=== PATIENT | male | born 1995 | race Two or more races ===

== ENCOUNTER 2017-10-11 19:40 | Emergency (ER) | payer OTHER ==
[~2017-10-11] VITALS: Ht 170.2 cm; Wt 61.2 kg
[2017-10-11 21:34] LABS: Basophils # (auto) 0.1 uL; Basophils % (auto) 0.7 % (0.0-2.0); Eosinophils # (auto) 0.1 uL; Eosinophils % (auto) 1.3 % (0.0-7.0); Hemoglobin 14.1 g/dL (13.5-17.5); Lymphocytes # (auto) 1.2 uL; Lymphocytes % (auto) 15.6 % (10.0-50.0); Mean Corpuscular Hemoglobin 31.5 pg (28.0-32.0); Mean Corpuscular Hgb Conc. 34.4 g/dL (32.0-36.0); Mean Corpuscular Volume 91.5 fL (80.0-100.0); Monocytes # (auto) 0.7 uL; Monocytes % (auto) 8.9 % (0.0-12.0); Neutrophils # (auto) 5.4 uL; Neutrophils % (auto) 73.5 % (37.0-80.0); Nucleated Red Blood Cells % 0.1 %; Platelet Count (auto) 217 10^3/uL (140-450); Red Blood Cells 4.48 10^6/uL (4.5-5.90); Red Cell Distribution Width 12.8 % (11.8-14.3); White Blood Cell 7.4 10^3/uL (4.4-10.8)
[2017-10-11 21:49] LABS: Albumin 3.7 g/dL (3.4-5.0); Calcium 8.2 mg/dL (8.5-10.1); Potassium 3.4 mmol/L (3.5-5.1)
[2017-10-11 21:51] LABS: BUN/Creatinine Ratio 14.4
[2017-10-11 21:53] LABS: Bilirubin, Total 0.4 mg/dL (0.2-1.0); Total Protein 6.7 g/dL (6.4-8.2)
[2017-10-11 22:21] LABS: Urine Bacteria NONE SEEN /hpf (None Seen); Urine Blood Negative /uL (Negative); Urine WBC 10 /hpf (0 - 3)
[2017-10-12 00:05] VITALS: BP 112/49
[2017-10-12] MEDS ORDERED: POTASSIUM CHL 20 Meq TABLET PO ONE (00:15)
== END 2017-10-12 00:27 | disposition home or self-care (01) ==
LOC: EDBD 19:40 → ER 19:40
DX: E10.649 Type 1 diabetes mellitus with hypoglycemia without coma (principal); E87.6 Hypokalemia; T38.3X5A Adverse effect of insulin and oral hypoglycemic [antidiabetic] drugs, initial encounter; Y92.89 Other specified places as the place of occurrence of the external cause
CPT/HCPCS: 36415; 80053; 81001; 82962; 85025

== ENCOUNTER 2024-02-19 19:09 | Inpatient (IN) | payer MEDICAID, OTHER ==
[~2024-02-19] VITALS: Ht 175.3 cm; Wt 64.0 kg
[2024-02-19] MEDS: SODIUM CHLORIDE 0.9% 2,000 ML IV ONE (19:31)
[2024-02-19 19:37] LABS: Base Excess -19.1 mmol/L (-2.0-2.0)
[2024-02-19 19:39] LABS: Basophils # (auto) 0 10 ^3/uL (0-0.2); Basophils % (auto) 0.3 % (0.0-2.0); Eosinophils # (auto) 0 10 ^3/uL (0-0.8); Hematocrit 50.2 % (41.0-53.0); Hemoglobin 17.4 g/dL (13.5-17.5); Lymphocytes # (auto) 1.3 10 ^3/uL (0.4-5.4); Lymphocytes % (auto) 8.1 % (10.0-50.0); Mean Corpuscular Hemoglobin 31.9 pg (28.0-32.0); Mean Corpuscular Hgb Conc. 34.7 g/dL (32.0-36.0); Monocytes # (auto) 0.5 10 ^3/uL (0-1.3); Monocytes % (auto) 3.1 % (0.0-12.0); Neutrophils # (auto) 14.8 10 ^3/uL (1.6-8.6); Neutrophils % (auto) 88.5 % (37.0-80.0); Nucleated Red Blood Cells % 0.1 %; Red Blood Cells 5.45 10^6/uL (4.5-5.90); Red Cell Distribution Width 12.4 % (11.8-14.3); White Blood Cell 16.7 10^3/uL (4.4-10.8)
[2024-02-19] MEDS: InsuLIN REG 1unit/0.01ml Soln (100units/ml) IV ONE (19:42)
[2024-02-19 19:58] LABS: Alanine Aminotransferase 28 U/L (7-40); Albumin 5.3 g/dL (3.2-4.8); Alkaline Phosphatase 143 U/L (46-116); Anion Gap 27.00001 (5-15); Aspartate Aminotransferase 36 U/L (13-40); BUN/Creatinine Ratio 15.4 (10.0-20.0); Blood Urea Nitrogen 21 mg/dL (9-23); Calcium 10.4 mg/dL (8.7-10.4); Chloride 95 mmol/L (98-107); Potassium 4.9 mmol/L (3.5-5.1); Sodium 132 mmol/L (136-145); Total Protein 8.5 g/dL (5.7-8.2)
[2024-02-19 20:03] LABS: Carbon Dioxide < 10 mmol/L (20-30); Glucose 425 mg/dL (74-106)
[2024-02-19 20:15] VITALS: PULSE 86; RESP 18; O2SAT 97
[2024-02-19 20:15] LABS: Urine Bacteria None Seen /hpf (None Seen)
[2024-02-19 20:20] LABS: Urine Blood Negative /uL (Negative); Urine Clarity Clear (Clear); Urine Color Light-Yellow (Yellow); Urine Protein, UAD TRACE (Negative); Urine Specific Gravity 1.026 (1.001-1.035); Urine Urobilinogen Normal (Negative); Urine WBC 1 /hpf (0 - 3); Urine pH 5.5 (5.0-9.0)
[2024-02-19] MEDS ORDERED: DEXTROSE (50%) 50ML SYRG IV PRN ×2 (20:45→21:15)
[2024-02-19] MEDS: INSULIN LANTUS (GLARGINE) 1 /0.01ml (100units/ml) SC ONE ×2 (20:47→21:15)
[2024-02-19] MEDS: INSULIN DRIP 100 UNIT/100ML 100 ML IV SCH (20:53)
[2024-02-19] MEDS: ACCU-CHEK COMFORT CURVE STRIP VI SCH (20:55)
[2024-02-19 21:01] LABS: Magnesium 2.3 mg/dL (1.6-2.6)
[2024-02-19 21:03] LABS: Phosphorus 5.8 mg/dL (2.4-5.1)
[2024-02-19] MEDS ORDERED: NITROGLYCERIN 0.4 MG SL TAB SL PRN (21:15)
[2024-02-19] MEDS ORDERED: ONDANSETRON HCL 4 MG/2 ML VIAL IV PRN (21:15)
[2024-02-19] MEDS: SODIUM CHLORIDE 0.9% 1,000 ML IV SCH (21:15)
[2024-02-19] MEDS ORDERED: MORPHINE SULFATE INJ 2 MG/ml SYRG IV PRN (21:15)
[2024-02-19 21:51] LABS: Chloride 103 mmol/L (98-107); Potassium 4.7 mmol/L (3.5-5.1); Sodium 137 mmol/L (136-145)
[2024-02-19 21:52] LABS: Anion Gap 21 (5-15); Calcium 9.4 mg/dL (8.7-10.4); Carbon Dioxide 13 mmol/L (20-30)
[2024-02-19 21:57] LABS: BUN/Creatinine Ratio 15.8 (10.0-20.0); Blood Urea Nitrogen 21 mg/dL (9-23)
[2024-02-19 21:59] LABS: Creatine Kinase IFCC 69 U/L (46-171)
[2024-02-19 22:00] LABS: Glucose 274 mg/dL (74-106); Phosphorus 4.6 mg/dL (2.4-5.1)
[2024-02-19] MEDS: D5W/SOD CHL 0.45% 1,000 ML IV SCH (22:45)
[2024-02-20] MEDS: SODIUM CHLORIDE 0.9% 1,000 ML IV SCH ×3 (01:15→11:21)
[2024-02-20 03:49] LABS: Anion Gap 12 (5-15); Carbon Dioxide 18 mmol/L (20-30); Chloride 107 mmol/L (98-107); Potassium 4.1 mmol/L (3.5-5.1); Sodium 137 mmol/L (136-145)
[2024-02-20 03:50] LABS: Calcium 8.7 mg/dL (8.7-10.4)
[2024-02-20 03:55] LABS: BUN/Creatinine Ratio 14.7 (10.0-20.0); Blood Urea Nitrogen 15 mg/dL (9-23)
[2024-02-20 03:57] LABS: Glucose 160 mg/dL (74-106)
[2024-02-20 07:45] VITALS: PULSE 89; RESP 12; O2SAT 96
[2024-02-20] MEDS: ACCU-CHEK COMFORT CURVE STRIP VI SCH (08:17)
[2024-02-20] MEDS: InsuLIN REG 1unit/0.01ml Soln (100units/ml) SC SCH (08:18)
[2024-02-20 09:23] LABS: Chloride 106 mmol/L (98-107); Potassium 4.1 mmol/L (3.5-5.1); Sodium 136 mmol/L (136-145)
[2024-02-20 09:24] LABS: Anion Gap 13 (5-15); Calcium 8.7 mg/dL (8.7-10.4); Carbon Dioxide 17 mmol/L (20-30)
[2024-02-20 09:29] LABS: BUN/Creatinine Ratio 12.7 (10.0-20.0); Blood Urea Nitrogen 13 mg/dL (9-23); Glucose 221 mg/dL (74-106)
[2024-02-20] MEDS: INSULIN LANTUS (GLARGINE) 1 /0.01ml (100units/ml) SC SCH (09:56)
[2024-02-20] MEDS ORDERED: INSULIN LANTUS (GLARGINE) 1 /0.01ml (100units/ml) SC SCH (10:00)
[2024-02-20 12:10] VITALS: BP 95/60; PULSE 70; RESP 16; TEMP 98.4; O2SAT 99
[2024-02-20 15:46] LABS: Chloride 108 mmol/L (98-107); Potassium 3.5 mmol/L (3.5-5.1); Sodium 139 mmol/L (136-145)
[2024-02-20 15:47] LABS: Anion Gap 5 (5-15); Calcium 8.9 mg/dL (8.7-10.4); Carbon Dioxide 26 mmol/L (20-30)
[2024-02-20 15:52] LABS: BUN/Creatinine Ratio 12.4 (10.0-20.0); Blood Urea Nitrogen 13 mg/dL (9-23)
[2024-02-20 15:53] LABS: Glucose 112 mg/dL (74-106)
[2024-02-20 16:58] VITALS: BP 99/49; PULSE 74; RESP 18; TEMP 98.4; O2SAT 98
[2024-02-20 20:00] VITALS: PULSE 67; RESP 16; O2SAT 99
[2024-02-20 21:00] VITALS: BP 104/61; PULSE 67; RESP 16; TEMP 98; O2SAT 99
[2024-02-21 01:00] VITALS: BP 92/63; PULSE 53; RESP 18; TEMP 97.5; O2SAT 100
[2024-02-21 05:00] VITALS: BP 99/56; PULSE 57; RESP 18; TEMP 97.3; O2SAT 100
[2024-02-21 06:01] LABS: Basophils # (auto) 0 10 ^3/uL (0-0.2); Basophils % (auto) 0.3 % (0.0-2.0); Eosinophils # (auto) 0.2 10 ^3/uL (0-0.8); Eosinophils % (auto) 1.9 % (0.0-7.0); Hematocrit 40.5 % (41.0-53.0); Lymphocytes # (auto) 2.2 10 ^3/uL (0.4-5.4); Lymphocytes % (auto) 26.4 % (10.0-50.0); Mean Corpuscular Hemoglobin 31.7 pg (28.0-32.0); Mean Corpuscular Hgb Conc. 34.6 g/dL (32.0-36.0); Mean Corpuscular Volume 91.7 fL (80.0-100.0); Monocytes # (auto) 0.9 10 ^3/uL (0-1.3); Monocytes % (auto) 10.8 % (0.0-12.0); Neutrophils % (auto) 60.6 % (37.0-80.0); Red Blood Cells 4.42 10^6/uL (4.5-5.90); Red Cell Distribution Width 12.2 % (11.8-14.3); White Blood Cell 8.2 10^3/uL (4.4-10.8)
[2024-02-21 06:13] LABS: Alanine Aminotransferase 19 U/L (7-40); Albumin 3.5 g/dL (3.2-4.8); Alkaline Phosphatase 67 U/L (46-116); Anion Gap 4 (5-15); Aspartate Aminotransferase 19 U/L (13-40); BUN/Creatinine Ratio 9.9 (10.0-20.0); Blood Urea Nitrogen 8 mg/dL (9-23); Calcium 8.4 mg/dL (8.7-10.4); Carbon Dioxide 28 mmol/L (20-30); Chloride 110 mmol/L (98-107); Glucose 69 mg/dL (74-106); Potassium 3.7 mmol/L (3.5-5.1); Sodium 142 mmol/L (136-145)
[2024-02-21 06:14] LABS: Bilirubin, Total 0.9 mg/dL (0.2-1.0); Total Protein 5.6 g/dL (5.7-8.2)
[2024-02-21 07:45] VITALS: PULSE 67; RESP 14; O2SAT 99
[2024-02-21 08:39] VITALS: BP 90/62; PULSE 78; RESP 14; TEMP 98.4; O2SAT 99
[2024-02-21 13:00] VITALS: BP 127/65; PULSE 76; RESP 18; TEMP 98.8; O2SAT 98
[2024-02-21] MEDS ORDERED: InsuLIN REG 1unit/0.01ml Soln (100units/ml) SC SCH (18:00)
[2024-02-21] MEDS ORDERED: ACCU-CHEK COMFORT CURVE STRIP VI SCH (18:00)
== END 2024-02-21 13:50 | disposition left against medical advice (07) | DRG 420 ==
LOC: ER 19:09 → TELE 21:17 → EAST 02-20 12:07
PROVIDERS: ADMIT Nurse Practitioner; ATTEND Nurse Practitioner
DX: E11.10 Type 2 diabetes mellitus with ketoacidosis without coma (principal); N17.0 Acute kidney failure with tubular necrosis; M62.82 Rhabdomyolysis; D72.829 Elevated white blood cell count, unspecified; E86.0 Dehydration
CPT/HCPCS: 36415; 36600; 80048; 80053; 81001; 82010; 82550; 82805; 82962; 83036; 83735; 83930; 84100; 85025; 99291; G0378; J1815